=== PATIENT | male | born 1990 | race African-American/Black ===

== ENCOUNTER 2017-11-30 00:01 | Emergency (ER) | payer OTHER ==
--- NOTE | 2017-11-30 08:02 | RAD ---
CHEST 2 VIEWS: HISTORY: Cough. COMPARISON: Radiographs from 2004. FINDINGS: The lungs are clear. No pneumothorax or effusion. Cardiac silhouette and mediastinal contours are w ithin normal limits. No acute osseous abnormality. IMPRESSION: No acute intrathoracic abnormality. POS: [facility]
== END 2017-11-30 01:41 | disposition home or self-care (01) ==
LOC: ERS 00:01
DX: J20.9 Acute bronchitis, unspecified (principal); I10 Essential (primary) hypertension; F17.210 Nicotine dependence, cigarettes, uncomplicated; Z71.6 Tobacco abuse counseling; Z79.899 Other long term (current) drug therapy
CPT/HCPCS: 71046; 99406

== ENCOUNTER 2018-06-24 18:09 | Inpatient (IN) | payer OTHER ==
[2018-06-24] MEDS ORDERED: Dexamethasone 10 MG/ML VIAL ONE (18:55)
[2018-06-24] MEDS ORDERED: Acetaminophen/Codeine 30-300mg Tablet ONE (18:55)
[2018-06-24] MEDS ORDERED: Ketorolac Tromethamine 30 MG/ML VIAL ONE (18:55)
[2018-06-24 19:10] LABS: #Basophils 0.1 thou/uL (0.0-0.2); #Eosinphils 0.2 thou/uL (0.0-0.7); #Lymphocytes 2.3 thou/uL (1.20-3.40); #Monocytes 0.8 thou/uL (0.11-0.59); #Neutrophils 7.5 thou/uL (1.40-6.50); %Basophils 0.7 % (0.0-1.0); %Eosinophils 1.4 % (0.0-10.0); %Lymphocytes 21.1 % (21.0-51.0); %Monocytes 7.6 % (0.0-10.0); %Neutrophils 69.1 % (42.0-75.0); Hemoglobin 15.3 g/dL (14.0-18.0); Mean Corpuscular HGB CONC 33.5 g/dL (32.0-36.0); Mean Corpuscular Hemoglobin 29.5 pg (27.0-31.0); Mean Corpuscular Volume 88.1 fL (78.0-98.0); Mean Platelet Volume 9.2 fL (7.4-10.4); Platelet Count 281 thou/uL (130-400); RBC Distribution Width 11.1 % (11.5-14.5); Red Blood Cell (RBC) Count 5.19 mill/uL (4.70-6.10); White Blood Cell (WBC) Count 10.9 thou/uL (4.8-10.8)
[2018-06-24 19:30] LABS: ALT (SGPT) 31 U/L (8-55); AST (SGOT) 25 U/L (5-34); Albumin 4.4 g/dL (3.5-5.0); Alkaline Phosphatase 89 U/L (40-150); Anion Gap 14 mmol/L (10-20); BUN (Urea Nitrogen) 7 mg/dL (8.9-20.6); Bilirubin, Total 0.8 mg/dL (0.2-1.2); CK (CPK) 230 U/L (30-200); Calc. Creatinine Clearance 0 mL/min (70-130); Calcium 9.2 mg/dL (7.8-10.44); Carbon Dioxide 25 mmol/L (22-29); Chloride 99 mmol/L (98-107); Estimated GFR-MDRD Greater than 90; Globulin 3.4 g/dL (2.4-3.5); Glucose 103 mg/dL (70-105); Potassium 3.6 mmol/L (3.5-5.1); Protein, Total 7.8 g/dL (6.0-8.3); Sodium 134 mmol/L (136-145)
--- NOTE | 2018-06-24 19:44 | RAD ---
CHEST TWO VIEWS: 06/24/18 HISTORY: Cough. Fever. Congestion and chest pressure. FINDINGS: Normal cardiac silhouette. There are bilateral right greater than left interstitial and alveolar opac ities. No pneumothorax or osseous abnormalities. IMPRESSION: Bilateral right greater than left interstitial and alveolar opacities. Correlate for multilobar infil trate/edema. Continued surveillance is recommended. POS: [facility]
[2018-06-24] MEDS ORDERED: Albuterol Sulfate 2.5 mg/3 ml Neb ONE ×2 (20:07)
[2018-06-24] MEDS ORDERED: Sodium Chloride 0.9% 1,000 ML IV SCH ×2 (21:09→21:59)
[2018-06-24 21:25] VITALS: BMI 32.8
[2018-06-24] MEDS ORDERED: Ondansetron HCl/PF 4 MG/2 ML Vial IVP PRN (21:53)
[2018-06-24] MEDS ORDERED: Ondansetron ODT 4 MG TAB PO PRN (21:53)
[2018-06-24] MEDS: cefTRIAXone\\ROCEPHIN 1 GM in Sodium Chloride 0.9% 100 ML IVPB SCH (22:07)
[2018-06-24] MEDS: Nicotine 14 MG PATCH TD SCH (22:15)
[2018-06-24] MEDS: Azithromycin 500 MG in Sodium Chloride 0.9% 250 ML 250 ML IVPB SCH (22:18)
[2018-06-24 22:55] LABS: Strep pneumo Urine Ag NEGATIVE (NEGATIVE)
[2018-06-24 23:26] LABS: HIV (1/2) Antibody/Antigen Non-Reactive (NonReactive); HIV 1/2 INDEX 0.08 S/CO (<1.00)
--- NOTE | 2018-06-25 03:37 | HP ---
CHIEF COMPLAINT: Shortness of breath. HISTORY OF PRESENT ILLNESS: This is a 27-year-old male with past medical history of hypertension, pr esented with chief complaint of shortness of breath and cough. Per the patient, his shortness of jamil ath had been progressively getting worse and is started this morning. The patient stated that in the past he was able to walk more than 15 miles, he gets tired, and he gets shortness of breath. The doug peguero also states that it does not matter whether exertion or he is resting. He gets shortness of breath as well. In the night, the patient states that he used 2 pillows to help him sleep. The patient also states that he has been having associated productive greenish sputum with cough for 1 mo nth. Per the patient, the cough has also progressively gotten worse. The patient stated that in the past, the patient had cough and had to see a doctor who gave him some antibiotics and stated that he had bronchitis. Of note, the patient stated that he did not want to come to the hospital; however, because of the increase in shortness of breath, chest pain, and cough, he decided to come to the [facility] room. The patient tried to call his doctor's office, but the patient could not get an appointm ent. Of note, the patient is also complaining of chest pain which is substernal, localized. The jonathan mock stated that chest pain was between 6-9/10 when he presented, currently has resolved. REVIEW OF SYSTEMS: Positive for chest pain, cough, shortness of breath. Otherwise, as documented in the HPI. All other systems were reviewed and are negative. PAST MEDICAL HISTORY: Hypertension. FAMILY HISTORY: Significant for heart failure and hypertension in both families. PAST SURGICAL HISTORY: The patient does not have any surgical history. PSYCHIATRIC HISTORY: Anxiety, depression. SOCIAL HISTORY: The patient works for [employer]. He works as a maintenance tasia. The patient denies alcohol use, denies illicit drug use, but states that he smokes about half a pack a day. The patient has been smoking for about 5 years. ALLERGIES: No known drug allergies. CURRENT MEDICATIONS: The patient takes amlodipine 5 mg and lisinopril/hydrochlorothiazide 20/12.5 mg . PHYSICAL EXAMINATION: VITAL SIGNS: Blood pressure is 178/124, pulse is 117, respiratory rate of 18, temperature of 99.7, O 2 sat of 92. GENERAL: The patient is tachycardic, able to speak in full sentences, does not appear to be in any a cute distress. HEENT: Normocephalic, atraumatic. Pupils are equally round and reactive to light. Extraocular move ments are intact. No scleral icterus. NECK: Supple. No JVD. Trachea is midline. Full range of motion. RESPIRATORY: Clear to auscultation bilaterally. No wheezing, no rales, no rhonchi is appreciated. The patient has good air intake. CARDIOVASCULAR: The patient is tachycardic. No murmurs appreciated. ABDOMEN: Soft, nontender, nondistended. Positive bowel sounds in all quadrants. No palpable masses . EXTREMITIES: The patient has 5/5 upper extremity strength and 5/5 lower extremity strength. Good pu lses at the upper and lower extremities bilaterally. NEUROLOGIC: Cranial nerves II-XII grossly intact. No neurologic deficits noted. SKIN: Warm, dry, and intact. PSYCHIATRIC: The patient is alert, oriented x3, not in acute distress. EKG: Shows sinus tachycardia with rate of 106. Left atrial enlargement noted. IMAGING: Chest x-ray showed bilateral right greater than left interstitial and alveolar opacities, m ultilobar infiltrate/edema. LABORATORY DATA: WBC is 10.9, hemoglobin is 15.3, hematocrit is 45.8, RDW of 11.1. D-dimer less melanie n 0.27. Sodium of 134, potassium 3.6, chloride 99, carbon dioxide of 25, anion gap of 14, BUN is 7, creatinine is 1.03, creatine kinase 230. AST 25, ALT 31. TSH is 0.4048. HIV is nonreactive. Strep pneumonia is negative. Influenza A and B negative. ASSESSMENT AND PLAN: 1. This is a 27-year-old male with history of hypertension, being admitted for shortness of breath l ikely secondary to atypical pneumonia. At this point, the patient has been started on azithromycin a nd Rocephin. We will continue the patient on these medications. Chest x-ray showed that there is so me infiltrate/edema noted. We will monitor this. We will continue to follow up patient's labs in th e morning. We will continue DuoNeb treatment as needed for shortness of breath. 2. Questionable edema on chest x-ray. At this point, this seems to be questionable infiltrate/edema that was seen on chest x-ray. The patient has history of hypertension and for patient's age, we are very concerned for possible cardiomyopathy. At this point, we will get echo to evaluate the patient 's heart. 3. Acute respiratory failure. The patient has hypoxemic respiratory failure at this time on 2 liter s of nasal cannula. The patient's respiratory failure is likely due to possible atypical pneumonia. At this point, the patient has been started on antibiotics. The patient is receiving DuoNeb treatme nts. We will keep the patient on nasal cannula and we will monitor the patient closely. 4. Sinus tachycardia. The patient was tachycardic in the 120s likely due to anxiety and possibly du e to the patient's shortness of breath. At this time, an echo has been ordered to evaluate the patie nt's heart. We will continue to monitor the patient and continue current treatment. D-dimer was ord ered. D-dimer is less than 0.27 and TSH is negative. 5. Hypertension, uncontrolled. We will start the patient on his blood pressure medications and we w ill give the patient blood pressure medication p.r.n. when the patient's blood pressure is elevated. 6. Deep venous thrombosis and gastrointestinal prophylaxis. We will do sequential compression devic es and no chemical gastrointestinal prophylaxis needed. This case has been dictated by Dr. Toby Bar on patient Tk Gray.
[2018-06-25 05:07] LABS: #Lymphocytes 0.7 thou/uL (1.20-3.40); #Monocytes 0.2 thou/uL (0.11-0.59); #Neutrophils 7.7 thou/uL (1.40-6.50); %Basophils 0.2 % (0.0-1.0); %Eosinophils 0.1 % (0.0-10.0); %Lymphocytes 8.4 % (21.0-51.0); %Monocytes 1.8 % (0.0-10.0); %Neutrophils 89.6 % (42.0-75.0); Hemoglobin 14.7 g/dL (14.0-18.0); Mean Corpuscular Hemoglobin 29.3 pg (27.0-31.0); Mean Corpuscular Volume 88.9 fL (78.0-98.0); Mean Platelet Volume 9.2 fL (7.4-10.4); Platelet Count 261 thou/uL (130-400); RBC Distribution Width 11.1 % (11.5-14.5); Red Blood Cell (RBC) Count 5.02 mill/uL (4.70-6.10); White Blood Cell (WBC) Count 8.6 thou/uL (4.8-10.8)
[2018-06-25 05:14] LABS: Anion Gap 11 mmol/L (10-20); BUN (Urea Nitrogen) 9 mg/dL (8.9-20.6); Calc. Creatinine Clearance 179 mL/min (70-130); Calcium 9.2 mg/dL (7.8-10.44); Carbon Dioxide 24 mmol/L (22-29); Chloride 102 mmol/L (98-107); Estimated GFR-MDRD Greater than 90; Glucose 144 mg/dL (70-105); Potassium 3.8 mmol/L (3.5-5.1); Sodium 133 mmol/L (136-145)
[2018-06-25] MEDS: Amlodipine 5 MG TAB PO SCH (09:20)
[2018-06-25] MEDS: Lisinopril/Hydrochlorothiazide 20 mg/12.5 mg Tablet PO SCH (09:21)
--- NOTE | 2018-06-25 18:52 | PDOC.PN ---
- Subjective Encounter Start Date: 06/25/18 Encounter Start Time: 09:40 Pt seen for followup re: pneumonia. Cough+, yellowish green sputum+. - Objective Resuscitation Status: Resuscitation Status FULL:Full Resuscitation MAR Reviewed: Yes Vital Signs & Weight: Vital Signs (12 hours) Temp Pulse Resp BP BP Pulse Ox 06/25/18 18:37 93 18 94 L 06/25/18 16:00 98.2 F 104 H 18 158/92 H 96 06/25/18 15:21 97.9 F 100 20 146/90 H 93 L 06/25/18 14:05 100 20 06/25/18 11:00 98.2 F 109 H 20 152/90 H 97 06/25/18 10:49 100 20 06/25/18 09:21 93 158/101 H 06/25/18 09:20 93 158/101 H 06/25/18 08:00 98.4 F 101 H 22 H 158/101 H 93 L 06/25/18 07:32 92 L Weight Weight 228 lb 8 oz I&O: 06/24/18 06/25/18 06/26/18 06:59 06:59 06:59 Intake Total 350 Balance 350 Result Diagrams: 06/25/18 04:31 06/25/18 04:31 Additional Labs: labs reviewed by me Phys Exam - Physical Examination Obese HEENT: moist MMs, sclera anicteric, oral pharynx no lesions, 2+ tonsils Neck: no nodes, no JVD, supple, full ROM Respiratory: no wheezing, no rhonchi Shad crackles Cardiovascular: no rub S1, S2, tachy, reg Gastrointestinal: soft, non-tender, no distention, positive bowel sounds Musculoskeletal: edema present Neurological: moves all 4 limbs Psychiatric: normal affect, A&O x 3 Dx/Plan (1) Pneumonia Code(s): J18.9 - PNEUMONIA, UNSPECIFIED ORGANISM Status: Acute Comment: continue IV antibiotics as below (2) Shortness of breath Code(s): R06.02 - SHORTNESS OF BREATH Status: Acute Comment: ? due to pneumonia vs CHF. Await 2D echo, start diuretics. Check BNP (3) Hyponatremia Code(s): E87.1 - HYPO-OSMOLALITY AND HYPONATREMIA Status: Acute Comment: Mild, likley asymptomatic. (4) HTN (hypertension) Code(s): I10 - ESSENTIAL (PRIMARY) HYPERTENSION Status: Chronic Comment: add PRN IV hydralazine - Plan * . Review of Systems - Review of Systems Constitutional: negative: fever, chills, sweats, weakness, malaise Respiratory: Cough, SOB with Excertion, Sputum. negative: Dry, Shortness of Breath, Hemoptysis, Pleuritic Pain, Wheezing Cardiovascular: orthopnea. negative: chest pain, palpitations, paroxysmal nocturnal dyspnea, edema, light headedness Gastrointestinal: negative: Nausea, Vomiting, Abdominal Pain, Diarrhea, Constipation, Melena, Hematochezia Genitourinary: negative: Dysuria, Frequency, Incontinence, Hematuria, Retention Skin: negative: Rash, Lesions, Francisco, Bruising - Medications/Allergies Allergies/Adverse Reactions: Allergies Allergy/AdvReac Type Severity Reaction Status Date / Time No Known Allergies Allergy Verified 11/16/13 11:17 Medications: Current Medications Acetaminophen (Tylenol) 650 mg PO Q4H PRN PRN Reason: Headache/Fever/Mild Pain (1-3) Albuterol/Ipratropium (Duoneb) 3 ml EZPAP [id number] [facility] Last Admin: 06/25/18 18:37 Dose: 3 ml Amlodipine Besylate (Norvasc) 5 mg PO DAILY [facility] Last Admin: 06/25/18 09:20 Dose: 5 mg Lisinopril/HCTZ (Prinizide 20-12.5) 1 tab PO DAILY [facility] Last Admin: 06/25/18 09:21 Dose: 1 tab Azithromycin 500 mg/ Sodium (Chloride) 250 mls @ 250 mls/hr IVPB Q24HR [facility] Last Admin: 06/24/18 22:18 Dose: 250 mls Ceftriaxone Sodium 1 gm/ (Sodium Chloride) 100 mls @ 200 mls/hr IVPB Q24HR [facility] Last Admin: 06/24/18 22:07 Dose: 100 mls Nicotine (Nicoderm Patch) 14 mg TD Q24HR [facility] Last Admin: 06/24/18 22:15 Dose: 14 mg Ondansetron HCl (Zofran Odt) 4 mg PO Q6H PRN PRN Reason: Nausea/Vomiting Ondansetron HCl (Zofran) 4 mg IVP Q6H PRN PRN Reason: Nausea/Vomiting Sodium Chloride (Flush - Normal Saline) 10 ml IVF Q12HR [facility] Last Admin: 06/25/18 09:22 Dose: Not Given Sodium Chloride (Flush - Normal Saline) 10 ml IVF PRN PRN PRN Reason: Saline Flush
[2018-06-25] MEDS ORDERED: hydrALAZINE 20 MG/ML VIAL SLOW IVP PRN (18:55)
[2018-06-25] MEDS: Acetaminophen 325 MG TAB PO PRN (20:42)
[2018-06-25] MEDS: cefTRIAXone\\ROCEPHIN 1 GM in Sodium Chloride 0.9% 100 ML IVPB SCH (22:31)
[2018-06-25] MEDS: Nicotine 14 MG PATCH TD SCH (22:32)
[2018-06-25] MEDS: Azithromycin 500 MG in Sodium Chloride 0.9% 250 ML 250 ML IVPB SCH (23:56)
[2018-06-26 05:03] LABS: #Eosinphils 0.1 thou/uL (0.0-0.7); #Lymphocytes 2.1 thou/uL (1.20-3.40); #Monocytes 1.1 thou/uL (0.11-0.59); #Neutrophils 9.6 thou/uL (1.40-6.50); %Basophils 0.2 % (0.0-1.0); %Eosinophils 0.5 % (0.0-10.0); %Lymphocytes 16.1 % (21.0-51.0); %Monocytes 8.8 % (0.0-10.0); %Neutrophils 74.4 % (42.0-75.0); Hemoglobin 13.5 g/dL (14.0-18.0); Mean Corpuscular HGB CONC 32.5 g/dL (32.0-36.0); Mean Corpuscular Volume 89.4 fL (78.0-98.0); Mean Platelet Volume 9.5 fL (7.4-10.4); Platelet Count 263 thou/uL (130-400); RBC Distribution Width 11.4 % (11.5-14.5); Red Blood Cell (RBC) Count 4.64 mill/uL (4.70-6.10); White Blood Cell (WBC) Count 12.9 thou/uL (4.8-10.8)
[2018-06-26 05:24] LABS: Anion Gap 12 mmol/L (10-20); BUN (Urea Nitrogen) 8 mg/dL (8.9-20.6); Calc. Creatinine Clearance 202 mL/min (70-130); Calcium 9.2 mg/dL (7.8-10.44); Carbon Dioxide 24 mmol/L (22-29); Chloride 107 mmol/L (98-107); Estimated GFR-MDRD Greater than 90; Glucose 168 mg/dL (70-105); Potassium 3.5 mmol/L (3.5-5.1); Sodium 139 mmol/L (136-145)
[2018-06-26] MEDS: Furosemide 40 MG/4 ML VIAL SLOW IVP SCH ×2 (05:37→14:47)
[2018-06-26] MEDS: Lisinopril/Hydrochlorothiazide 20 mg/12.5 mg Tablet PO SCH (08:22)
[2018-06-26] MEDS: Amlodipine 5 MG TAB PO SCH (08:22)
--- NOTE | 2018-06-26 15:58 | PDOC.PN ---
- Subjective Encounter Start Date: 06/26/18 Encounter Start Time: 11:20 Pt seen for followup re: pneumonia. Cough+, no fevers or chills. No orthopnea. - Objective Resuscitation Status: Resuscitation Status FULL:Full Resuscitation MAR Reviewed: Yes Vital Signs & Weight: Vital Signs (12 hours) Temp Pulse Resp BP BP BP Pulse Ox 06/26/18 12:40 98.5 F 90 20 154/103 H 97 06/26/18 08:27 97.8 F 90 16 135/85 97 06/26/18 08:22 99 160/98 H 06/26/18 08:05 93 L 06/26/18 08:04 98 18 98 06/26/18 08:00 97 06/26/18 06:50 160/98 H 06/26/18 04:00 98.2 F 99 18 96 Weight Weight 228 lb 8 oz I&O: 06/25/18 06/26/18 06/27/18 06:59 06:59 06:59 Intake Total 350 Balance 350 Result Diagrams: 06/26/18 04:14 06/26/18 04:13 Additional Labs: Labs reviewed by me Phys Exam - Physical Examination Obese HEENT: moist MMs, sclera anicteric, oral pharynx no lesions, 2+ tonsils Neck: no nodes, no JVD, supple, full ROM Respiratory: no wheezing, no rales, no rhonchi, clear to auscultation bilateral Cardiovascular: RRR, no rub S1, S2 Gastrointestinal: soft, non-tender, no distention, positive bowel sounds Neurological: moves all 4 limbs Psychiatric: normal affect, A&O x 3 Dx/Plan (1) Pneumonia Code(s): J18.9 - PNEUMONIA, UNSPECIFIED ORGANISM Status: Acute Comment: switch to oral antibiotics, repeat chest x-ray (2) Shortness of breath Code(s): R06.02 - SHORTNESS OF BREATH Status: Acute Comment: 2D echo report noted. Discontinue furosemide (3) HTN (hypertension) Code(s): I10 - ESSENTIAL (PRIMARY) HYPERTENSION Status: Chronic Comment: add PRN IV hydralazine (4) Hyponatremia Code(s): E87.1 - HYPO-OSMOLALITY AND HYPONATREMIA Status: Resolved - Plan * . Review of Systems - Review of Systems Constitutional: negative: fever, chills, sweats, weakness, malaise Respiratory: Cough, Sputum. negative: Dry, Shortness of Breath, Hemoptysis, SOB with Excertion, Pleuritic Pain, Wheezing Cardiovascular: negative: chest pain, palpitations, orthopnea, paroxysmal nocturnal dyspnea, edema, light headedness Gastrointestinal: negative: Nausea, Vomiting, Abdominal Pain, Diarrhea, Constipation, Melena, Hematochezia Genitourinary: negative: Dysuria, Frequency, Incontinence, Hematuria, Retention Musculoskeletal: negative: Neck Pain, Shoulder Pain, Arm Pain, Back Pain, Hand Pain, Leg Pain, Foot Pain Skin: negative: Rash, Lesions, Francisco, Bruising - Medications/Allergies Allergies/Adverse Reactions: Allergies Allergy/AdvReac Type Severity Reaction Status Date / Time No Known Allergies Allergy Verified 11/16/13 11:17 Medications: Current Medications Acetaminophen (Tylenol) 650 mg PO Q4H PRN PRN Reason: Headache/Fever/Mild Pain (1-3) Last Admin: 06/25/18 20:42 Dose: 650 mg Albuterol/Ipratropium (Duoneb) 3 ml EZPAP [id number] [facility] Last Admin: 06/26/18 08:04 Dose: 3 ml Amlodipine Besylate (Norvasc) 5 mg PO DAILY [facility] Last Admin: 06/26/18 08:22 Dose: 5 mg Furosemide (Lasix) 40 mg SLOW IVP 0600,1400 [facility] Last Admin: 06/26/18 14:47 Dose: 40 mg Lisinopril/HCTZ (Prinizide 20-12.5) 1 tab PO DAILY [facility] Last Admin: 06/26/18 08:22 Dose: 1 tab Hydralazine HCl (Apresoline) 10 mg SLOW IVP Q6H PRN PRN Reason: SBP Greater Than 170 Azithromycin 500 mg/ Sodium (Chloride) 250 mls @ 250 mls/hr IVPB Q24HR [facility] Last Admin: 06/25/18 23:56 Dose: 250 mls Ceftriaxone Sodium 1 gm/ (Sodium Chloride) 100 mls @ 200 mls/hr IVPB Q24HR [facility] Last Admin: 06/25/18 22:31 Dose: 100 mls Nicotine (Nicoderm Patch) 14 mg TD Q24HR [facility] Last Admin: 06/25/18 22:32 Dose: 14 mg Ondansetron HCl (Zofran Odt) 4 mg PO Q6H PRN PRN Reason: Nausea/Vomiting Ondansetron HCl (Zofran) 4 mg IVP Q6H PRN PRN Reason: Nausea/Vomiting Sodium Chloride (Flush - Normal Saline) 10 ml IVF Q12HR [facility] Last Admin: 06/26/18 08:23 Dose: 10 ml Sodium Chloride (Flush - Normal Saline) 10 ml IVF PRN PRN PRN Reason: Saline Flush
--- NOTE | 2018-06-26 18:09 | EKG ---
Test Reason : Blood Pressure : / mmHG Vent. Rate : 106 BPM Atrial Rate : 106 BPM P-R Int : 158 ms QRS Dur : 088 ms QT Int : 340 ms P-R-T Axes : 059 050 050 degrees QTc Int : 451 ms Sinus tachycardia Left atrial enlargement Nonspecific T wave abnormality Abnormal ECG Confirmed by MAO ALFARO D.O. ([id number]), photograph editor SALLY CHACON ([id number]) on 06/26/2018 6:09:13 PM Referred By: Confirmed By:MAO ALFARO D.O.
[2018-06-26] MEDS ORDERED: Amlodipine 5 MG TAB PO SCH (18:30)
[2018-06-26] MEDS: Cefdinir 300 MG CAP PO SCH (21:30)
[2018-06-26] MEDS: Nicotine 14 MG PATCH TD SCH (21:30)
[2018-06-26] MEDS: Azithromycin 500 MG in Sodium Chloride 0.9% 250 ML 250 ML IVPB SCH (21:35)
[2018-06-26] MEDS: Acetaminophen 325 MG TAB PO PRN (21:42)
[2018-06-27 04:44] LABS: #Basophils 0.1 thou/uL (0.0-0.2); #Eosinphils 0.2 thou/uL (0.0-0.7); #Lymphocytes 3.6 thou/uL (1.20-3.40); #Monocytes 0.7 thou/uL (0.11-0.59); #Neutrophils 6.2 thou/uL (1.40-6.50); %Basophils 0.6 % (0.0-1.0); %Eosinophils 1.9 % (0.0-10.0); %Lymphocytes 33.5 % (21.0-51.0); %Monocytes 6.5 % (0.0-10.0); %Neutrophils 57.5 % (42.0-75.0); Hemoglobin 14.4 g/dL (14.0-18.0); Mean Corpuscular HGB CONC 32.4 g/dL (32.0-36.0); Mean Corpuscular Hemoglobin 28.8 pg (27.0-31.0); Mean Corpuscular Volume 88.7 fL (78.0-98.0); Mean Platelet Volume 8.6 fL (7.4-10.4); Platelet Count 287 thou/uL (130-400); RBC Distribution Width 11.3 % (11.5-14.5); White Blood Cell (WBC) Count 10.8 thou/uL (4.8-10.8)
[2018-06-27 04:46] LABS: Anion Gap 11 mmol/L (10-20); BUN (Urea Nitrogen) 12 mg/dL (8.9-20.6); Calc. Creatinine Clearance 185 mL/min (70-130); Calcium 9.7 mg/dL (7.8-10.44); Carbon Dioxide 30 mmol/L (22-29); Chloride 100 mmol/L (98-107); Estimated GFR-MDRD Greater than 90; Glucose 158 mg/dL (70-105); Potassium 3.5 mmol/L (3.5-5.1); Sodium 137 mmol/L (136-145)
[2018-06-27] MEDS: Acetaminophen 325 MG TAB PO PRN (06:05)
[2018-06-27] MEDS: Cefdinir 300 MG CAP PO SCH (08:10)
[2018-06-27] MEDS: Lisinopril/Hydrochlorothiazide 20 mg/12.5 mg Tablet PO SCH (08:10)
[2018-06-27] MEDS ORDERED: Amlodipine 10 MG TAB PO SCH (09:00)
--- NOTE | 2018-06-27 09:33 | RAD ---
CHEST 2 VIEWS: HISTORY: Dyspnea. COMPARISON: 06/24/2018. FINDINGS: Cardiac silhouette is enlarged. Pulmonary vasculature upper limits of normal. No lobar consolidati on is now apparent. Patchy areas of infiltrate on the prior study are much less pronounced. No evid ence of pneumothorax or pleural fluid. IMPRESSION: 1. Improved aeration throughout each lung with marked interval decrease in bilateral infiltrates. 2. Mild pulmonary vascular congestion persists. POS: [facility]
--- NOTE | 2018-06-27 10:29 | CT ---
CT ARTERIOGRAM CHEST WITH IV CONTRAST AND 3D MIP IMAGING: HISTORY: Chest pain. Dyspnea. FINDINGS: There is good contrast opacification of the pulmonary arteries. Minimal atelectasis left lateral gemma g base. Reactive-appearing lymph nodes of the mediastinum. No pleural fluid or pneumothorax. IMPRESSION: No CT evidence of pulmonary embolus. POS: [facility]
[2018-06-27 12:22] VITALS: BP 151/94; TEMP 98.5
[2018-06-27] MEDS ORDERED: ISOVUE-370 76%-LOCM 1 ML ONE (13:38)
--- NOTE | 2018-06-27 20:06 | DIS ---
DATE OF ADMISSION: 06/26/2018 DATE OF DISCHARGE: 06/27/2018 PRIMARY CARE PROVIDER: Ana Luz. DISCHARGE DIAGNOSIS: Community-acquired pneumonia. CONDITION OF PATIENT ON THE DAY OF DISCHARGE: Stable. I assessed Mr. Gray on the day of discha rge. He denies any chest pain or shortness of breath. Vital signs are stable. S1 and S2 are heard, regular. Lungs are clear to auscultation bilaterally. DISCHARGE MEDICATIONS: Cefdinir 300 mg 2 times a day, 18 more doses; azithromycin 250 mg daily, 4 mo re doses; Nicoderm CQ 14 mg patch daily; amlodipine 5 mg daily and lisinopril/hydrochlorothiazide 20/ 12.5 mg daily. HOSPITAL COURSE: Mr. Gray is a pleasant 27-year-old gentleman who was admitted to [facility] on 06/24/2018 for community-acquired pneumonia. Please refer to Dr. Bar's hi story and physical note dated 06/25/2018 for further details. He improved with antibiotics. He also received a dose of furosemide for suspected congestive heart failure, although he had only a mildly elevated BNP of 136. TSH was normal. He also had a 2D echocardiogram, which showed left ventricular ejection fraction of 50%-55%, mildly dilated left atrium, normal left ventricular size, structurally normal mitral valve, structurally normal aortic valve and mild tricuspid regurgitation. He also had CT angiogram of the chest, which did not show any CT evidence of pulmonary embolus. He had reactive appearing lymph nodes in the mediastinum and minimal atelectasis of the left lateral lung base. A r epeat chest x-ray showed mild pulmonary vascular congestion and improved aeration throughout each gemma g with marked interval decrease in bilateral infiltrates. He has been advised to stop smoking. At the time of this dictation, final blood cultures are pending . He is advised to follow up with his primary care provider for final blood culture report. Many thanks for allowing me to participate in your patient's care. Please feel free to contact me wi th any questions or concerns. On the day of discharge, he has sodium 137, improved from 134 at the time of admission, normal potass ium, normal creatinine, normal white count, normal hemoglobin of 14.4 and normal platelet count of 28 7,000. HIV 1 and 2 serology was nonreactive. Urine Streptococcal pneumoniae antigen was negative. Mycoplasma pneumoniae serology is pending at the time of this dictation. He is advised to follow up with his primary care provider for the final report. DISCHARGE DESTINATION: Home. TOTAL AMOUNT OF TIME SPENT COORDINATING THIS DISCHARGE: 33 minutes.
[2018-06-29 01:10] LABS: Mycoplasma pneumoniae IgG AB 474 U/mL (0-99); Mycoplasma pneumoniae IgM AB Less than 770 U/mL (0-769)
== END 2018-06-27 14:00 | disposition home or self-care (01) | DRG 194 ==
LOC: ERS 18:09 → T4-A 21:02 → INTOOBSV 21:02 → OBSVTOIN 06-26 11:58
PROVIDERS: ADMIT Internal Medicine; ATTEND Internal Medicine
DX: J18.9 Pneumonia, unspecified organism (principal); E87.1 Hypo-osmolality and hyponatremia; I10 Essential (primary) hypertension
CPT/HCPCS: 36415; 36416; 71046; 71275; 80048; 80053; 82550; 83880; 84443; 85025; 85379; 87040; 87070; 87205; 87389; 87804; 87899; 90471; 90686; 93005; 93306; 94640; 96361; 96372; 96374; 96375; A4216; G0008; J0360; J0456; J0696; J1100; J1885; J1940; J1956; J7050; J7611; J7620

== ENCOUNTER 2018-06-30 08:05 | Outpatient (CLI) | payer OTHER ==
--- NOTE | 2018-06-30 08:38 | RAD ---
TWO VIEWS CHEST: Comparison: 06-27-18 History: Pneumonia. FINDINGS: Two views of the chest show normal sized cardiomediastinal silhouette. There is no evidence of consol idation, mass, or pleural effusion. The bones are unremarkable. IMPRESSION: No evidence of acute cardiopulmonary disease. POS: [facility]
== END 2018-06-30 08:06 | disposition home or self-care (01) ==
LOC: RAD-FRANK 08:05
PROVIDERS: ATTEND Nurse Practitioner Family
DX: J18.9 Pneumonia, unspecified organism (principal)
CPT/HCPCS: 71046

== ENCOUNTER 2019-04-20 01:21 | Emergency (ER) | payer OTHER ==
[2019-04-20] MEDS ORDERED: Acetaminophen 500 MG TAB ONE (02:49)
[2019-04-20 03:23] LABS: #Basophils 0.1 thou/uL (0.0-0.2); #Eosinphils 0.1 thou/uL (0.0-0.7); #Lymphocytes 2.1 thou/uL (1.20-3.40); #Monocytes 0.9 thou/uL (0.11-0.59); %Basophils 0.7 % (0.0-1.0); %Eosinophils 0.9 % (0.0-10.0); %Lymphocytes 18.6 % (21.0-51.0); %Monocytes 7.8 % (0.0-10.0); Mean Corpuscular HGB CONC 33.6 g/dL (32.0-36.0); Mean Corpuscular Volume 86.3 fL (78.0-98.0); Mean Platelet Volume 8.5 fL (7.4-10.4); Platelet Count 256 thou/uL (130-400); RBC Distribution Width 11.3 % (11.5-14.5); Red Blood Cell (RBC) Count 5.19 mill/uL (4.70-6.10); White Blood Cell (WBC) Count 11.1 thou/uL (4.8-10.8)
[2019-04-20 03:38] LABS: ALT (SGPT) 31 U/L (8-55); AST (SGOT) 25 U/L (5-34); Albumin 4.2 g/dL (3.5-5.0); Alkaline Phosphatase 66 U/L (40-150); Anion Gap 10 mmol/L (10-20); BUN (Urea Nitrogen) 10 mg/dL (8.9-20.6); Bilirubin, Total 0.9 mg/dL (0.2-1.2); Calc. Creatinine Clearance 0 mL/min (70-130); Calcium 9.5 mg/dL (7.8-10.44); Carbon Dioxide 27 mmol/L (22-29); Chloride 101 mmol/L (98-107); Estimated GFR-MDRD Greater than 90; Globulin 3.1 g/dL (2.4-3.5); Glucose 139 mg/dL (70-105); Potassium 3.3 mmol/L (3.5-5.1); Protein, Total 7.3 g/dL (6.0-8.3); Sodium 135 mmol/L (136-145)
--- NOTE | 2019-04-20 08:37 | RAD ---
2 VIEWS CHEST: Date: 04/20/19 COMPARISON: 06/30/18. HISTORY: Cough and chest congestion for 4 hours. FINDINGS: 2 views of the chest show a normal sized cardiomediastinal silhouette. There are multifocal air space opacities projecting over the right lung consistent with pneumonia. No pleural effusion is seen. IMPRESSION: Right-sided pneumonia. POS: [facility]
== END 2019-04-20 03:46 | disposition home or self-care (01) ==
LOC: ERS 01:21
DX: J18.9 Pneumonia, unspecified organism (principal); I10 Essential (primary) hypertension; F41.9 Anxiety disorder, unspecified; F32.9 Major depressive disorder, single episode, unspecified; F17.210 Nicotine dependence, cigarettes, uncomplicated; Z79.899 Other long term (current) drug therapy
CPT/HCPCS: 36415; 71046; 80053; 84484; 85025; 93005

== ENCOUNTER 2020-11-06 03:07 | Emergency (ER) | payer OTHER | END 2020-11-06 04:25 | disposition home or self-care (01) | LOC: ERS 03:07 | DX: T59.811A Toxic effect of smoke, accidental (unintentional), initial encounter (principal); I10 Essential (primary) hypertension; F17.210 Nicotine dependence, cigarettes, uncomplicated; Z79.899 Other long term (current) drug therapy | CPT/HCPCS: 99284 ==

== ENCOUNTER 2023-01-20 08:14 | Outpatient (CLI) | payer BC | END 2023-01-20 08:15 | disposition home or self-care (01) | LOC: RAD-FRANK 08:14 | PROVIDERS: ATTEND Nurse Practitioner Family | DX: M79.671 Pain in right foot (principal) ==

== ENCOUNTER 2023-09-12 21:22 | Emergency (ER) | payer BC ==
[~2023-09-12 21:22] MED LIST: Iopamidol-370 76% 500 ML MDV (1 ML CHARGE) ONE
[2023-09-12] MEDS ORDERED: Ketorolac Tromethamine 30 MG/ML VIAL ONE (22:10)
[2023-09-12] MEDS ORDERED: Ondansetron PF 4 MG/2 ML Vial ONE (22:10)
[2023-09-12] MEDS ORDERED: Morphine 4 MG/ML VIAL ONE (22:10)
[2023-09-12 22:12] LABS: #Eosinphils 0.1 thou/uL (0.0-0.7); #Monocytes 0.5 thou/uL (0.11-0.59); #Neutrophils 3.8 thou/uL (1.40-6.50); %Basophils 0.3 % (0.0-1.0); %Eosinophils 1.5 % (0.0-10.0); %Lymphocytes 35.1 % (21.0-51.0); %Monocytes 7.7 % (0.0-10.0); %Neutrophils 54.7 % (42.0-75.0); Hematocrit 44.2 % (42.0-52.0); Hemoglobin 15.2 g/dL (14.0-18.0); Mean Corpuscular HGB CONC 34.4 g/dL (32.0-36.0); Mean Corpuscular Hemoglobin 29.7 pg (27.0-31.0); Mean Corpuscular Volume 86.5 fl (78.0-98.0); Mean Platelet Volume 10.9 fL (7.4-10.4); Platelet Count 300 10x3/uL (130-400); RBC Distribution Width 11.4 % (11.5-14.5); Red Blood Cell (RBC) Count 5.11 mill/uL (4.70-6.10); White Blood Cell (WBC) Count 6.9 10x3/uL (4.8-10.8)
[2023-09-12 22:27] LABS: PTT 27.7 sec (22.9-36.1); Prothrombin Time 13.7 sec (12.0-14.7)
[2023-09-12 22:31] LABS: D-Dimer Test Less than 0.27 *mcg/mL (0.27-0.43)
[2023-09-12 22:41] LABS: ALT (SGPT) 36 U/L (8-55); AST (SGOT) 18 U/L (5-34); Albumin 4.2 g/dL (3.5-5.0); Alkaline Phosphatase 78 U/L (40-110); Anion Gap 16 mmol/L (10-20); BUN (Urea Nitrogen) 9 mg/dL (8.9-20.6); Bilirubin, Total 0.8 mg/dL (0.2-1.2); Calc. Creatinine Clearance 0 mL/min (70-130); Calcium 8.9 mg/dL (7.8-10.44); Carbon Dioxide 23 mmol/L (22-29); Chloride 102 mmol/L (98-107); Estimated GFR 116; Globulin 3.2 g/dL (2.4-3.5); Glucose 175 mg/dL (70-105); Potassium 3.5 mmol/L (3.5-5.1); Protein, Total 7.4 g/dL (6.0-8.3); Sodium 137 mmol/L (136-145)
[2023-09-12 22:44] LABS: Troponin I 0.026 ng/mL (< 0.028)
[2023-09-12 22:56] LABS: Bacteria/HPF None Seen HPF (None Seen); Bilirubin Negative (Negative); Blood, Urine Negative (Negative); CAUTI Indications for Culture Pelvic or flank pain; Clarity Clear (Clear); Glucose, Urine (Dipstick) 300 mg/dL (Negative); Ketone, Urine Negative (Negative); Leukocyte Negative Leu/uL (Negative); Nitrite Negative (Negative); Protein, Urine (Dipstick) 70 mg/dL (Neg-Trace); RBC/HPF 0-3 HPF (0-3); Specific Gravity, Urine 1.018 (1.002-1.036); Sperm/HPF Rare HPF (None Seen); Squamous Epithelial None Seen HPF (0-3); Urine Culture Reflex No No; Urobilinogen Normal mg/dL (Less than 2); WBC/HPF 0-3 HPF (0-3)
== END 2023-09-13 00:27 | disposition home or self-care (01) ==
LOC: ERS 21:22
DX: M79.652 Pain in left thigh (principal); I11.0 Hypertensive heart disease with heart failure; I50.22 Chronic systolic (congestive) heart failure; Z87.891 Personal history of nicotine dependence; Z79.899 Other long term (current) drug therapy
CPT/HCPCS: 36415; 75635; 80053; 81001; 84484; 85025; 85379; 85610; 85730; 96374; 96375; J1885; J2270; J2405; Q9967